=== PATIENT | female | born 1975 ===

== ENCOUNTER 2018-11-25 09:04 | Emergency (ER) | payer MEDICAID ==
[2018-11-25 09:12] VITALS: PULSE 59; RESP 18; O2SAT 100
[2018-11-25] MEDS ORDERED: Sodium Chloride 0.9% 1,000 ML IV ONE (09:49)
--- NOTE | 2018-11-25 10:06 | C.PDOC ---
History Of Present Illness 43 y/o female, with history of ovarian cyst and S/P removal of right ovarian cyst, presents to ED with complaints of suprapubic abdominal pain that started 2 days ago. Patient describes the pain as sharp and stabbing. Patient is unsure if the pain is due to an ovarian cyst. She also complains that the pain radiates to her vagina. She denies fever, nausea, vomiting, dysuria, hematuria, back pain, or other complaints. Time Seen by Provider: 11/25/18 09:23 Chief Complaint (Nursing): Abdominal Pain History Per: Patient History/Exam Limitations: no limitations Onset/Duration Of Symptoms: Days Current Symptoms Are (Timing): Still Present Location Of Pain/Discomfort: Suprapubic Quality Of Discomfort: Sharp, Stabbing Associated Symptoms: denies: Fever, Chills, Nausea, Vomiting, Back Pain, Urinary Symptoms Abnormal Vaginal Bleeding: No Past Medical History Reviewed: Historical Data, Nursing Documentation, Vital Signs Vital Signs: Last Vital Signs Temp 98.7 F 11/25/18 09:07 Pulse 59 L 11/25/18 09:07 Resp 18 11/25/18 09:07 BP 115/75 11/25/18 09:07 Pulse Ox 100 11/25/18 09:07 Primary Care Provider: FAMILY PROVIDER,NO - Medical History PMH: No Chronic Diseases Other Surgeries: ovarian cyst Family History: States: No Known Family Hx - Social History Hx Alcohol Use: Yes Hx Substance Use: No - Immunization History Hx Tetanus Toxoid Vaccination: No Hx Influenza Vaccination: No Hx Pneumococcal Vaccination: No Review Of Systems Except As Marked, All Systems Reviewed And Found Negative. Constitutional: Negative for: Fever, Chills Gastrointestinal: Positive for: Abdominal Pain (suprapubic). Negative for: Na usea, Vomiting Genitourinary: Negative for: Dysuria, Hematuria, Vaginal Bleeding Musculoskeletal: Negative for: Back Pain Physical Exam - Physical Exam Appears: Non-toxic, No Acute Distress Skin: Warm, Dry Head: Normacephalic Eye(s): bilateral: Normal Inspection Oral Mucosa: Moist Neck: Supple Cardiovascular: Rhythm Regular Respiratory: Normal Breath Sounds Gastrointestinal/Abdominal: Soft, Tenderness (suprapubic tenderness) Back: No CVA Tenderness Extremity: Normal ROM Extremity: Bilateral: Normal Color And Temperature, Normal ROM Neurological/Psych: Oriented x3, Normal Speech ED Course And Treatment - Laboratory Results Result Diagrams: 11/25/18 11:32 11/25/18 11:32 Lab Interpretation: Normal O2 Sat by Pulse Oximetry: 100 (RA) Pulse Ox Interpretation: Normal - CT Scan/US No standard instances Other Rad Studies (CT/US): Read By Radiologist, Radiology Report Reviewed CT/US Interpretation: FINDINGS: UTERUS: Measures 7.7 x 4.0 x 5.6 cm. Antever nelson. ENDOMETRIUM: Measures 8 mm in diameter. CERVIX: Cervix length measures approximately 2.6 cm. RIGHT OVARY: Measures 2.8 x 1.8 x 2.6 cm. Blood flow is demonstrated. LEFT OVARY: Measures 3.2 x 1.8 x 3.2 cm. Blood flow is demonstrated. FREE FLUID: Small to moderate fluid noted within the cul-de-sac. OTHER FINDINGS: Limited submitted views views of the right lower quadrant appear grossly unremarkable. IMPRESSION: Small to moderate pelvic free-fluid identified within the cul-de-sac. Progress Note: Treated with toradol 30 mg IV. On re-evaluation abdomen soft mild suprapubic tenderness Reassessment Condition: Improved Medical Decision Making Medical Decision Making: Plan: --Labs --Transvaginal US --IV fluids 1L --Toradol 30 mg IVP --UA --Urine HCG Disposition Counseled Patient/Family Regarding: Studies Performed, Diagnosis, Need For Followup, Rx Given - Disposition [facility] [Outside] [facility] [Outside] Disposition: HOME/ ROUTINE Disposition Time: 12:50 Condition: IMPROVED Additional Instructions: Follow up with clinic for further evaluation Return to ED if any increase symptoms Prescriptions: Naproxen [Naprosyn] 1 tab PO BID PRN #25 tab PRN Reason: Pain Instructions: Ovarian Cyst (DC), Ovarian Cysts Forms: [employer] ([employer]) - POA Present On Arrival: None - Clinical Impression Clinical Impression: Abdominal pain, Ovarian cyst - 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 - Scribe Statement The provider has reviewed the documentation as recorded by the Scribe Yusra Green All medical record entries made by the Scribe were at my direction and personally dictated by me. I have reviewed the chart and agree that the record accurately reflects my personal performance of the history, physical exam, medical decision making, and the department course for this patient. I have also personally directed, reviewed, and agree with the discharge instructions and disposition.
--- NOTE | 2018-11-25 11:15 | US ---
Date of service: 11/25/2018 HISTORY: vaginal bleeding COMPARISON: None available. TECHNIQUE: Real-time transabdominal pelvic ultrasound was performed. In addition a transvaginal pelvic ultrasound was necessary to better depict pelvic anatomy. FINDINGS: UTERUS: Measures 7.7 x 4.0 x 5.6 cm. Anteverted. ENDOMETRIUM: Measures 8 mm in diameter. CERVIX: Cervix length measures approximately 2.6 cm. RIGHT OVARY: Measures 2.8 x 1.8 x 2.6 cm. Blood flow is demonstrated. LEFT OVARY: Measures 3.2 x 1.8 x 3.2 cm. Blood flow is demonstrated. FREE FLUID: Small to moderate fluid noted within the cul-de-sac. OTHER FINDINGS: Limited submitted views views of the right lower quadrant appear grossly unremarkable. IMPRESSION: Small to moderate pelvic free-fluid identified within the cul-de-sac.
[2018-11-25 11:44] LABS: BASO % 0.4 % (0.0-2.0); EOS % 0.6 % (0.0-4.0); LYMPH # 1.6 K/uL (1.0-4.3); LYMPH % 21.4 % (20.0-40.0); MEAN CELL VOLUME 96.9 fL (81.0-99.0); MEAN CORPUSCULAR HEMOGLOBIN 33.3 pg (27.0-31.0); MEAN CORPUSCULAR HGB CONC 34.4 g/dL (33.0-37.0); MEAN PLATELET VOLUME 7.9 fL (7.2-11.7); MONO # 0.6 K/uL (0.0-0.8); MONO % 8.4 % (0.0-10.0); NEUT # 5.2 K/uL (1.8-7.0); NEUT % 69.2 % (50.0-75.0); RBC 3.89 Mil/uL (3.80-5.20); RED CELL DISTRIBUTION WIDTH 12.5 % (11.5-14.5); WHITE BLOOD COUNT 7.6 K/uL (4.8-10.8)
[2018-11-25 11:58] LABS: ALB/GLOB RATIO 1.4 (1.0-2.1); ALBUMIN 4.5 g/dL (3.5-5.0); ALT/SGPT 26 U/L (9-52); AST/SGOT 18 U/L (14-36); BLOOD UREA NITROGEN 12 mg/dL (7-17); CALCIUM 9.3 mg/dl (8.6-10.4); GFR NON-AFRICAN AMERICAN > 60; LIPASE 76 U/L (23-300)
[2018-11-25] MEDS ORDERED: Sodium Chloride 0.9% 1,000 ML ONE (12:01)
[2018-11-25 12:23] LABS: HCG,QUALITATIVE URINE NEGATIVE (NEGATIVE)
[2018-11-25 12:30] LABS: SQUAMOUS EPITHIAL 1 /hpf (0-5); URINE BILIRUBIN NEGATIVE (NEGATIVE); URINE BLOOD NEGATIVE (NEGATIVE); URINE CLARITY Clear (Clear); URINE COLOR Yellow (YELLOW); URINE GLUCOSE (UA) NORMAL (Normal); URINE LEUKOCYTE ESTERASE NEG Leu/uL (Negative); URINE PROTEIN NEGATIVE (NEGATIVE); URINE UROBILINOGEN NORMAL mg/dL (0.2-1.0)
[2018-11-25 13:20] VITALS: BP 123/78; TEMP 98.3
== END 2018-11-25 13:19 | disposition home or self-care (01) ==
LOC: C.ER 09:04
DX: N83.209 Unspecified ovarian cyst, unspecified side (principal); R10.30 Lower abdominal pain, unspecified
CPT/HCPCS: 76830; 76856; 80053; 81001; 83690; 84703; 85025; 96361; 96374; 99284; J1885; J7030